=== PATIENT | female | born 1995 | race Two or more races ===

== ENCOUNTER 2021-06-16 09:52 | Emergency (ER) | payer OTHER ==
[~2021-06-16] VITALS: Ht 167.6 cm; Wt 66.2 kg
[~2021-06-16 09:52] MED LIST: AMOX1TAB12 PO; PROVENTIL HFA6.7 GM IH; PROVENTIL3 ML/2.5 M IH; SINGULAIR 10MG10 MG PO; SYMBICORT 16010.2 GM IH; ULTRACET PO; ZYNCOF 20-400120 ML PO
[2021-06-16] MEDS ORDERED: PEPCID AC10 MG PO (16:58)
[2021-06-16] MEDS ORDERED: KETO10TA2 PO (16:58)
== END 2021-06-16 17:28 ==
LOC: ER 09:52
DX: B34.9 Viral infection, unspecified (principal); Z03.818 Encounter for observation for suspected exposure to other biological agents ruled out